=== PATIENT | female | born 1955 | race African-American/Black ===

== ENCOUNTER 2018-04-25 12:51 | Emergency (ER) | payer MEDICAID ==
[~2018-04-25] VITALS: Ht 162.6 cm; Wt 55.0 kg
[2018-04-25] MEDS ORDERED: AMLO1POW MC (12:56)
[2018-04-25] MEDS ORDERED: FURO-152 PO (12:56)
[2018-04-25] MEDS ORDERED: COR3 PO (12:56)
[2018-04-25] MEDS ORDERED: ACETAMINOPHEN 325MG TABLET PO ONE (15:15)
[2018-04-25 16:30] VITALS: BP 112/65
== END 2018-04-25 16:36 | disposition home or self-care (01) ==
LOC: ER 12:51
DX: M54.2 Cervicalgia (principal); I11.0 Hypertensive heart disease with heart failure; I50.9 Heart failure, unspecified; Z95.0 Presence of cardiac pacemaker; Z79.899 Other long term (current) drug therapy; V49.19XA Passenger injured in collision with other motor vehicles in nontraffic accident, initial encounter; Y93.89 Activity, other specified; Y92.413 State road as the place of occurrence of the external cause; Y99.8 Other external cause status
CPT/HCPCS: 72050; 99284